=== PATIENT | female | born 1935 | race Caucasian/White ===

== ENCOUNTER 2017-04-17 10:27 | Inpatient (IN) | payer MEDICARE ==
[~2017-04-17] VITALS: Ht 167.6 cm; Wt 60.9 kg
[~2017-04-17 10:27] MED LIST: CEFAZOLIN 1,000 MG ONE; DEXAMETHASONE 4 MG/ML, 1ML ONE; KETAMINE 10 MG/ML, 20ML ONE; METOCLOPRAMIDE 5 MG/ML, 2ML ONE; ONDANSETRON 2MG/ML, 2ML ONE; PHENYLEPHRINE 10 MG/ML ONE; PROPOFOL 10 MG/ML, 20ML ONE; PROPOFOL 10 MG/ML, 50ML ONE; ROCURONIUM 10 MG/ML ONE
[2017-04-17] MEDS ORDERED: METOCLOPRAMIDE 5 MG/ML, 2ML ONE (10:49)
[2017-04-17] MEDS ORDERED: HYDROmorphone 1 MG/ML, 1ML ONE ×2 (10:49→12:05)
[2017-04-17] MEDS ORDERED: DIPHENHYDRAMINE 50 MG/ML, 1ML ONE (10:49)
[2017-04-17] MEDS ORDERED: DIPH,PERTUSS(ACELL),TET VAC/PF 0.5 ML IM-VACC ONE ×2 (10:50→11:00)
[2017-04-17] MEDS ORDERED: LIDOCAINE 1%-EPI 1:100K, 20ML INFIL ONE (11:00)
[2017-04-17] MEDS ORDERED: PLEASE ENTER HEIGHT AND WEIGHT MC SCH (11:00)
[2017-04-17] MEDS ORDERED: METOCLOPRAMIDE 5 MG/ML, 2ML IVPush ONE (11:00)
[2017-04-17] MEDS ORDERED: PLEASE ENTER ALLERGIES MC SCH ×2 (11:00)
[2017-04-17] MEDS ORDERED: DIPHENHYDRAMINE 50 MG/ML, 1ML IVPush ONE (11:00)
[2017-04-17] MEDS ORDERED: SODIUM CHLORIDE FLUSH 10ML SYR IVF ONE (11:00)
[2017-04-17] MEDS ORDERED: SODIUM CHLORIDE 0.9%, 500ML IVBOLUS ONE (11:00)
[2017-04-17] MEDS ORDERED: HYDROmorphone 1 MG/ML, 1ML IVPush PRN (11:00)
[2017-04-17 11:19] LABS: BLOOD UREA NITROGEN 22 mg/dL (7-18)
[2017-04-17] MEDS ORDERED: ASPI-496 PO (12:13)
[2017-04-17] MEDS ORDERED: MELO-184 PO (12:13)
[2017-04-17] MEDS ORDERED: LISI40TA PO (12:13)
[2017-04-17] MEDS ORDERED: ATOR40TA78 PO (12:13)
[2017-04-17] MEDS ORDERED: HYDROmorphone 2 MG/ML, 1ML IVPush PRN (12:30)
[2017-04-17] MEDS: ONDANSETRON 2MG/ML, 2ML IVPush PRN ×2 (13:41→20:50)
[2017-04-17] MEDS ORDERED: ONDANSETRON 2MG/ML, 2ML IVPush PRN ×2 (14:00→17:00)
[2017-04-17] MEDS ORDERED: ACETAMINOPHEN 325 MG TABLET PO PRN ×2 (14:00→17:00)
[2017-04-17] MEDS ORDERED: ENALAPRILAT 1.25 MG/ML, 2ML IVPush PRN (14:00)
[2017-04-17 14:02] VITALS: BP 148/80
[2017-04-17] MEDS: SODIUM CHLORIDE 0.9% 1,000 ML IV SCH (16:41)
[2017-04-17] MEDS ORDERED: HYDROmorphone 1 MG/ML, 1ML IV PRN (17:00)
[2017-04-17] MEDS ORDERED: PROMETHAZINE 25 MG/ML, 1ML IV PRN (17:00)
[2017-04-17] MEDS ORDERED: MEPERIDINE/PF 25MG/0.5ML IVPush PRN (17:00)
[2017-04-17] MEDS ORDERED: LABETALOL 5MG/ML, 20ML IV PRN (17:00)
[2017-04-17] MEDS ORDERED: FENTANYL PF 100 MCG/2ML IV PRN (17:00)
[2017-04-17] MEDS ORDERED: hydrALAzine 20 MG/ML, 1ML IV PRN (17:00)
[2017-04-17] MEDS ORDERED: OXYcodone 5 MG/5 ML ORAL.SOL UDC PO PRN (17:00)
[2017-04-17] MEDS: METOPROLOL TARTRATE 25 MG TABLET PO SCH (17:23)
[2017-04-17] MEDS ORDERED: MIDAZOLAM 1 MG/ML, 2ML ONE (17:32)
[2017-04-17] MEDS ORDERED: FENTANYL PF 250 MCG/5ML ONE (17:32)
[2017-04-17] MEDS ORDERED: OXYcodone 5 MG/5 ML ORAL.SOL UDC ONE (19:21)
[2017-04-17] MEDS: morphine SULFATE 10 MG/ML, 1ML IVPush PRN ×3 (19:35→19:41)
[2017-04-17] MEDS ORDERED: MORPHINE SULFATE 4 MG/ML, 1ML ONE (19:38)
[2017-04-17 20:15] VITALS: BP 127/81
[2017-04-17] MEDS: ATORVASTATIN 40 MG TABLET PO SCH (21:00)
[2017-04-17] MEDS ORDERED: OXYcodone IR 5MG TABLET PO PRN (21:00)
[2017-04-18] MEDS: CEFAZOLIN PMX 1GM/50ML 50 ML IV SCH ×3 (02:30→17:23)
[2017-04-18 03:28] VITALS: BP 105/60
[2017-04-18] MEDS: SODIUM CHLORIDE 0.9% 1,000 ML IV SCH ×4 (04:05→22:43)
[2017-04-18] MEDS: KETOROLAC 30 MG/1 ML IV SCH ×3 (04:06→20:32)
[2017-04-18 05:25] LABS: BLOOD UREA NITROGEN 21 mg/dL (7-18)
[2017-04-18] MEDS: ENOXAPARIN 40 MG/0.4 ML SQ SCH (06:34)
[2017-04-18] MEDS: METOPROLOL TARTRATE 25 MG TABLET PO SCH ×2 (06:37→17:23)
[2017-04-18 09:00] VITALS: BP 102/55
[2017-04-18] MEDS ORDERED: LISINOPRIL 20 MG TABLET PO SCH (09:00)
[2017-04-18] MEDS ORDERED: ASPIRIN 81 MG TABLET EC PO SCH (09:00)
[2017-04-18] MEDS ORDERED: SODIUM CHLORIDE 0.9%, 500ML IVBOLUS ONE (10:30)
[2017-04-18 15:29] VITALS: BP 122/57
[2017-04-18] MEDS ORDERED: ENALAPRILAT 1.25 MG/ML, 2ML IVPush PRN (16:00)
[2017-04-18] MEDS ORDERED: morphine SULFATE 10 MG/ML, 1ML IVPush PRN (16:00)
[2017-04-18] MEDS ORDERED: ONDANSETRON 2MG/ML, 2ML IVPush PRN (16:00)
[2017-04-18] MEDS ORDERED: OXYcodone IR 5MG TABLET PO PRN (16:00)
[2017-04-18 18:55] VITALS: BP 107/57
[2017-04-18] MEDS: ACETAMINOPHEN 325 MG TABLET PO PRN (19:35)
[2017-04-18] MEDS: ATORVASTATIN 40 MG TABLET PO SCH (19:35)
[2017-04-19 02:03] VITALS: BP 138/70
[2017-04-19] MEDS: ACETAMINOPHEN 325 MG TABLET PO PRN ×4 (04:49→21:46)
[2017-04-19] MEDS: METOPROLOL TARTRATE 25 MG TABLET PO SCH ×2 (04:54→17:12)
[2017-04-19 05:32] LABS: BLOOD UREA NITROGEN 19 mg/dL (7-18)
[2017-04-19 07:41] VITALS: BP 133/70
[2017-04-19] MEDS: ENOXAPARIN 40 MG/0.4 ML SQ SCH (08:34)
[2017-04-19] MEDS: LISINOPRIL 20 MG TABLET PO SCH (09:29)
[2017-04-19] MEDS: ASPIRIN 81 MG TABLET EC PO SCH (09:29)
[2017-04-19] MEDS: FERROUS SULFATE 325 MG TABLET PO SCH ×2 (09:29→17:07)
[2017-04-19] MEDS: ONDANSETRON 2MG/ML, 2ML IVPush PRN ×2 (11:44→15:36)
[2017-04-19 13:27] VITALS: BP 136/52
[2017-04-19 13:39] VITALS: BP 113/63
[2017-04-19 21:10] VITALS: BP 150/78
[2017-04-19] MEDS: ATORVASTATIN 40 MG TABLET PO SCH (21:46)
[2017-04-20 01:44] VITALS: BP 155/78
[2017-04-20] MEDS: ACETAMINOPHEN 325 MG TABLET PO PRN ×6 (02:12→23:40)
[2017-04-20] MEDS: METOPROLOL TARTRATE 25 MG TABLET PO SCH ×2 (06:27→18:34)
[2017-04-20] MEDS: ENOXAPARIN 40 MG/0.4 ML SQ SCH (06:27)
[2017-04-20 06:57] VITALS: BP 148/83
[2017-04-20] MEDS: ASPIRIN 81 MG TABLET EC PO SCH (09:06)
[2017-04-20] MEDS: FERROUS SULFATE 325 MG TABLET PO SCH ×2 (09:06→16:47)
[2017-04-20] MEDS: LISINOPRIL 20 MG TABLET PO SCH (09:06)
[2017-04-20 13:00] VITALS: BP 117/50
[2017-04-20 18:35] VITALS: BP 128/71
[2017-04-20 19:45] VITALS: BP 149/82
[2017-04-20] MEDS: ATORVASTATIN 40 MG TABLET PO SCH (21:32)
[2017-04-21 03:13] VITALS: BP 145/75
[2017-04-21] MEDS: ACETAMINOPHEN 325 MG TABLET PO PRN ×3 (03:37→11:50)
[2017-04-21 06:44] VITALS: BP 133/78
[2017-04-21] MEDS: METOPROLOL TARTRATE 25 MG TABLET PO SCH (06:45)
[2017-04-21] MEDS: ENOXAPARIN 40 MG/0.4 ML SQ SCH (06:45)
[2017-04-21] MEDS: FERROUS SULFATE 325 MG TABLET PO SCH (08:01)
[2017-04-21 08:50] VITALS: BP 117/72
[2017-04-21] MEDS: LISINOPRIL 20 MG TABLET PO SCH (10:13)
[2017-04-21] MEDS: ASPIRIN 81 MG TABLET EC PO SCH (10:13)
[2017-04-21 10:57] LABS: ASPARTATE AMINO TRANSFERASE 11 U/L (15-37); BLOOD UREA NITROGEN 10 mg/dL (7-18)
[2017-04-21 12:34] VITALS: BP 140/72
== END 2017-04-21 16:30 | disposition home health service (06) | DRG 481 ==
LOC: ED 10:51 → EDIP 12:07 → 4NOR 13:16
PROVIDERS: ADMIT Hospitalist; ATTEND Internal Medicine
PROC: 0QH606Z Insertion of Intramedullary Internal Fixation Device into Right Upper Femur, Open Approach (ICD-10-PCS; principal; 2017-04-17 18:00)
DX: S72.141A Displaced intertrochanteric fracture of right femur, initial encounter for closed fracture (principal); E87.1 Hypo-osmolality and hyponatremia; D50.0 Iron deficiency anemia secondary to blood loss (chronic); E78.5 Hyperlipidemia, unspecified; N18.3 Chronic kidney disease, stage 3 (moderate); I12.9 Hypertensive chronic kidney disease with stage 1 through stage 4 chronic kidney disease, or unspecified chronic kidney disease; R94.31 Abnormal electrocardiogram [ECG] [EKG]; Z88.6 Allergy status to analgesic agent; S51.012A Laceration without foreign body of left elbow, initial encounter; Z80.49 Family history of malignant neoplasm of other genital organs; Z82.49 Family history of ischemic heart disease and other diseases of the circulatory system; Z86.73 Personal history of transient ischemic attack (TIA), and cerebral infarction without residual deficits; W01.0XXA Fall on same level from slipping, tripping and stumbling without subsequent striking against object, initial encounter; Y93.89 Activity, other specified; Y92.89 Other specified places as the place of occurrence of the external cause; Y99.8 Other external cause status
CPT/HCPCS: 36415; 71010; 76000; 80048; 80053; 82040; 83735; 85025; 85610; 85730; 90471; 90715; 93005; 96361; 96374; 96375; 96376; C1713; J0690; J1100; J1170; J1650; J1885; J2250; J2405; J2704; J3010; J1200; J2270; J2370; J2765; J7030; J7040